=== PATIENT | male | born 1980 | race Hispanic/Latino ===

== ENCOUNTER 2021-06-19 10:39 | Emergency (ER) | payer SELFPAY ==
--- NOTE | 2021-06-19 11:53 | EDPHYS ---
Physician Documentation [facility] Name: Farzad Vera Age: 40 yrs Sex: Male : 1980 Arrival Date: 06/19/2021 Time: 10:42 Bed 20 Private MD: ED Physician Angel Hernández HPI: 06/19 11:49 This 40 yrs old Male presents to ER via Ambulatory with complaints of High rn Blood Pressure. 11:49 The patient has elevated blood pressure and discovered this during work physical. rn Onset: The symptoms/episode began/occurred 1 week(s) ago. Modifying factors:. Associated signs and symptoms: Pertinent negatives: chest pain, headache, lightheadedness, nausea, vomiting, weakness. Severity of symptoms: At its worst the blood pressure was mild, in the emergency department the blood pressure is unchanged. The patient has experienced similar episodes in the past. The patient has not recently seen a physician. Reports had a work physical recently and had high blood pressure. Told cannot return to work if has high blood pressure. Does not have a PCP. Denies any focal symptoms. Denies chest pain or shortness of breath. Denies abdominal pain. Denies neurological problems. Denies headache or vision changes. Reports has had high blood pressure in [place] as well.. Historical: - Allergies: 11:14 No Known Allergies; vg1 - Home Meds: 11:14 None [Active]; vg1 - PMHx: 11:14 Anxiety; Hypertensive disorder; vg1 - Immunization history:: Adult Immunizations up to date, Client reports receiving the 2nd dose of the Covid vaccine. - Social history:: Smoking status: Patient reports the use of cigarette tobacco products, denies chronic smoking, but will smoke occasionally. - Family history:: not pertinent. - Hospitalizations: : No recent hospitalization is reported. ROS: 11:49 Constitutional: Negative for fever, chills, and weight loss, Eyes: Negative for injury, rn pain, redness, and discharge, Neck: Negative for injury, pain, and swelling, Cardiovascular: Negative for chest pain, palpitations, and edema, Respiratory: Negative for shortness of breath, cough, wheezing, and pleuritic chest pain, Abdomen/GI: Negative for abdominal pain, nausea, vomiting, diarrhea, and constipation, Back: Negative for injury and pain, MS/Extremity: Negative for injury and deformity, Skin: Negative for injury, rash, and discoloration, Neuro: Negative for headache, weakness, numbness, tingling, and seizure. Exam: 11:49 Constitutional: This is a well developed, well nourished patient who is awake, alert, rn and in no acute distress. Head/Face: Normocephalic, atraumatic. Eyes: Periorbital areas with no swelling, redness, or edema. Cardiovascular: Regular rate and rhythm. No pulse deficits. Respiratory: No increased work of breathing, no retractions or nasal flaring. Abdomen/GI: Soft, non-tender Skin: Warm, dry with normal turgor. Normal color with no rashes, no lesions, and no evidence of cellulitis. MS/ Extremity: Pulses equal, no cyanosis. Neurovascular intact. Full, normal range of motion. Equal circumference. Neuro: Awake and alert, GCS 15, oriented to person, place, time, and situation. Cranial nerves II-XII grossly intact. Motor strength 5/5 in all extremities. Sensory grossly intact. Cerebellar exam normal. Normal gait. Vital Signs: 11:11 BP 141 / 95; Pulse 86; Resp 18; Temp 97.8; Pulse Ox 100% ; Weight 85.28 kg; Height 5 vg1 ft. 6 in. (167.64 cm); Pain 0/10; 11:11 Body Mass Index 30.34 (85.28 kg, 167.64 cm) vg1 MDM: 11:25 Patient medically screened. rn 11:49 Differential diagnosis: Asymptomatic hypertension. Data reviewed: vital signs, nurses rn notes, and as a result, I will discharge patient. Counseling: I had a detailed discussion with the patient and/or guardian regarding: the historical points, exam findings, and any diagnostic results supporting the discharge/admit diagnosis, the need for outpatient follow up, to return to the emergency department if symptoms worsen or persist or if there are any questions or concerns that arise at home. Special discussion: I discussed with the patient/guardian in detail that at this point there is no indication for admission to the hospital. It is understood, however, that if the symptoms persist or worsen the patient needs to return immediately for re-evaluation. Based on the history and exam findings, there is no indication for further emergent testing or inpatient evaluation. I discussed with the patient/guardian the need to see the primary care provider for further evaluation of the symptoms. Administered Medications: No medications were administered Disposition Summary: 06/19/21 12:16 Discharge Ordered Location: Home(06/19/21 12:16) rn Problem: an ongoing problem(06/19/21 12:16) rn Symptoms: have improved(06/19/21 12:16) rn Condition: Stable(06/19/21 12:16) rn Diagnosis - Essential (primary) hypertension(06/19/21 12:16) rn Followup: rn - With: Private Physician - When: As needed - Reason: Recheck today's complaints, Re-evaluation by your physician Discharge Instructions: - Discharge Summary Sheet rn - Hypertension, Adult rn Forms: - Medication Reconciliation Form rn - Thank You Letter rn - Antibiotic training intern - Prescription Opioid Use rn Prescriptions: - Hydrochlorothiazide 25 mg Oral Tablet - take 1 tablet by ORAL route once daily .; 30 tablet; Refills: 0, Product rn Selection Permitted Signatures: Angel Hernández MD MD rn Garcia, Victoria, RN RN vg1 Corrections: (The following items were deleted from the chart) 11:55 11:52 Home rn tc5 11:55 11:52 an ongoing problem rn tc5 11:55 11:52 have improved rn tc5 11:55 11:52 Stable rn tc5 11:55 11:52 Essential (primary) hypertension rn tc5
--- NOTE | 2021-06-19 11:53 | ER ---
Nurse's Notes [facility] Name: Farzad Vera Age: 40 yrs Sex: Male : 1980 Arrival Date: 06/19/2021 Time: 10:42 Bed 20 Private MD: Diagnosis: Essential (primary) hypertension Presentation: 06/19 11:11 Chief complaint: Patient states: " I havent been able to sleep well for the past couple vg1 of days" Pt states BP this morning was 140s systolic. Denies NV, chest pain. Pt states hx of anxiety. Coronavirus screen: Vaccine status: Patient reports receiving the 2nd dose of the covid vaccine. Client denies travel out of the [place] in the last 14 days. Ebola Screen: Patient negative for fever greater than or equal to 101.5 degrees Fahrenheit, and additional compatible Ebola Virus Disease symptoms. Initial Sepsis Screen: Does the patient meet any 2 criteria? No. Patient's initial sepsis screen is negative. Does the patient have a suspected source of infection? No. Patient's initial sepsis screen is negative. Risk Assessment: Do you want to hurt yourself or someone else? Patient reports no desire to harm self or others. Onset of symptoms was June 19, 2021. 11:11 Method Of Arrival: Ambulatory vg1 11:11 Acuity: RENÉ 3 vg1 Triage Assessment: 11:14 General: Appears in no apparent distress. uncomfortable, Behavior is cooperative, vg1 anxious. Pain: Denies pain. Historical: - Allergies: 11:14 No Known Allergies; vg1 - Home Meds: 11:14 None [Active]; vg1 - PMHx: 11:14 Anxiety; Hypertensive disorder; vg1 - Immunization history:: Adult Immunizations up to date, Client reports receiving the 2nd dose of the Covid vaccine. - Social history:: Smoking status: Patient reports the use of cigarette tobacco products, denies chronic smoking, but will smoke occasionally. - Family history:: not pertinent. - Hospitalizations: : No recent hospitalization is reported. Screenin:54 Abuse screen: Denies threats or abuse. Denies injuries from another. Nutritional tc5 screening: No deficits noted. Tuberculosis screening: No symptoms or risk factors identified. Fall Risk None identified. Assessment: 11:54 Reassessment: Patient appears in no apparent distress at this time. No changes from tc5 previously documented assessment. General: Appears in no apparent distress. Behavior is calm, cooperative, appropriate for age. Pain: Denies pain. Vital Signs: 11:11 BP 141 / 95; Pulse 86; Resp 18; Temp 97.8; Pulse Ox 100% ; Weight 85.28 kg; Height 5 vg1 ft. 6 in. (167.64 cm); Pain 0/10; 11:11 Body Mass Index 30.34 (85.28 kg, 167.64 cm) vg1 ED Course: 10:42 Patient arrived in ED. mr 11:14 Triage completed. vg1 11:14 Arm band placed on. vg1 11:21 Angelica Young, CRISTINA is Primary Nurse. tc5 11:25 Angel Hernández MD is Attending Physician. rn Administered Medications: No medications were administered Outcome: 11:52 Discharge ordered by . rn 12:16 Discharge ordered by . rn 12:16 Patient left the ED. tc5 Signatures: Tanja Hernandez mr Angel Hernández MD MD rn Garcia, Victoria, RN RN [facility] Angelica Young RN RN [facility]
[2021-06-19 12:28] VITALS: BP 141/95; TEMP 97.8; O2SAT 100
== END 2021-06-19 12:16 | disposition home or self-care (01) ==
LOC: ER 10:39
DX: I10 Essential (primary) hypertension (principal); F41.9 Anxiety disorder, unspecified; F17.210 Nicotine dependence, cigarettes, uncomplicated
CPT/HCPCS: 99281